=== PATIENT | female | born 1970 | race Caucasian/White ===

== ENCOUNTER 2024-07-08 09:17 | Day surgery (SDC) | payer OTHER ==
[2024-07-02 14:26] VITALS: BMI 27.9
[~2024-07-08 09:17] MED LIST: ACETAMINOPHEN 325 MG TABLET (FP) PO PRN
[2024-07-08] MEDS ORDERED: TOBRA 0.3%/DEXAMETH 0.1% OPHTHALMIC SUSP 2.5 ML BTL ONE (09:25)
[2024-07-08] MEDS: TOBRA 0.3%/DEXAMETH 0.1% OPHTHALMIC SUSP 2.5 ML BTL OS SCH (09:35)
[2024-07-08] MEDS ORDERED: POVIDONE-IODINE 5% OPHTHALMIC PREP 30 ML SOLUTION ONE (10:25)
[2024-07-08] MEDS ORDERED: BETAXOLOL HCL 0.25% OPHTHALMIC 10 ML DROPSBTL ONE (10:25)
[2024-07-08] MEDS ORDERED: TETRACAINE 0.5% OPHTH SOLN 2 ML BOTTLE ONE (10:25)
[2024-07-08] MEDS ORDERED: BACITRACIN/POLYMYXIN OPH OINT 3.5 GM TUBE ONE (10:25)
[2024-07-08] MEDS ORDERED: LIDOCAINE 1%/EPI 1:100000 (20 ML MULTI DOSE VIAL) ONE (10:26)
[2024-07-08] MEDS ORDERED: NEO/POLYMYX B SULF/DEXAMETH OPHTHALMIC 5ML BOTTLE ONE (10:26)
[2024-07-08] MEDS ORDERED: BSS (NA/CA/MG/K) BALANCED SALT SOLUTION OPHTH SOLN 15 ML BOTTLE ONE (10:26)
[2024-07-08] MEDS ORDERED: LIDOCAINE HCL 2% JELLY 10 ML CARTRIDGE ONE (10:26)
[2024-07-08] MEDS ORDERED: MIDAZOLAM HCL 2 MG/2 ML SINGLE DOSE VIAL ONE (11:35)
[2024-07-08] MEDS ORDERED: MITOMYCIN 0.02% EYE DROPS - 2ML VIAL IO ONE (12:00)
[2024-07-08 12:50] VITALS: RESP 18; TEMP 97.7
[2024-07-08 13:07] VITALS: BP 135/72; PULSE 75
== END 2024-07-08 13:09 | disposition home or self-care (01) ==
LOC: FASU 09:17
PROVIDERS: ATTEND Ophthalmology
PROC: 08U107Z Supplement of Left Eye with Autologous Tissue Substitute, Open Approach (ICD-10-PCS; principal; 2024-07-08 11:58)
DX: H11.052 Peripheral pterygium, progressive, left eye (principal)
CPT/HCPCS: 88304-TC; V2790